=== PATIENT | male | born 1960 | race Caucasian/White ===

== ENCOUNTER 2017-07-04 09:43 | Day surgery (SDC) | payer OTHER ==
[2017-07-04] MEDS ORDERED: LIDOCAINE 2% MDV (20MG/ML) 20ML VIAL IV ONE (09:44)
[2017-07-04] MEDS ORDERED: PROPOFOL 10 MG/ML VIAL IV ONE (09:44)
--- NOTE | 2017-07-05 12:40 | Operative Note ---
DATE OF SURGERY: 07/04/2017 OPERATION: COLONOSCOPY to the cecum with cold biopsy forceps polypectomy x3 and cold snare polypectomy x1. INDICATION: Colorectal cancer screening. ANESTHESIA: Intravenous sedation was administered by the department of anesthesiology and included Diprivan titrated to effect. PROCEDURE: Following informed consent from this alert individual including a discussion of the risks and benefits of the procedure and an opportunity for the patient to ask questions, the patient was in the left lateral decubitus position. A digital rectal examination was performed. No abnormalities were noted. Following this, the Olympus [id number] video colonoscope was inserted into the rectum without resistance. The rectal mucosa had a normal appearance with normal folds and distensibility. The colonoscope was advanced up through the colon to the level of the cecum without much difficulty. Throughout the bowel the mucosa appeared normal, the folds were normal, and the bowel was fairly well distensible. The cecum was well defined by noting the appendiceal orifice and ileocecal valve. Retroflexion in the cecum was endoscopically unremarkable. At the level of the cecum, there were 2 polyps noted each measuring 3-4 mm in size. Each was removed with cold biopsy forceps. The colonoscope was then withdrawn farther. In the transverse colon, there was a sessile 6-7 mm polyp noted which was removed with cold snare polypectomy. The colonoscope was then further withdrawn back through the sigmoid colon into the rectum where a 4th diminutive polyp was noted measuring 3 mm in size. This was removed with cold biopsy forceps. Retroflexion in the rectum was endoscopically unremarkable. The colon preparation throughout was good. The patient tolerated the procedure well and was returned to the recovery area in stable condition. IMPRESSION: 1. Two 3-4 mm cecal polyps removed with biopsy forceps. 2. A 6-7 mm transverse colon polyp removed with cold snare polypectomy. 3. Diminutive rectal polyp removed with biopsy forceps. RECOMMENDATIONS: Further recommendations will be forthcoming pending results of pathology obtained today. The patient will be following up with Dr. Anand Gurrola. As always, thank you for allowing me to participate in the care of your patient. CC: Dr. Joe MCALLISTER
== END 2017-07-04 11:39 | disposition home or self-care (01) ==
LOC: HOP 09:43
PROVIDERS: ATTEND Internal Medicine Gastroenterology
DX: Z12.11 Encounter for screening for malignant neoplasm of colon (principal); D12.3 Benign neoplasm of transverse colon; K63.5 Polyp of colon; K62.1 Rectal polyp